=== PATIENT | female | born 1950 | race Caucasian/White ===

== ENCOUNTER → 2018-06-20 | Outpatient (CLI) | payer OTHER ==
[2018-06-20 11:02] LABS: Basophils # (auto) 0.1 uL; Basophils % (auto) 1.1 % (0.0-2.0); Eosinophils # (auto) 0.3 uL; Eosinophils % (auto) 4.7 % (0.0-7.0); Hematocrit 41.6 % (36.0-46.0); Hemoglobin 13.5 g/dL (12.2-16.2); Lymphocytes # (auto) 1.8 uL; Mean Corpuscular Hemoglobin 29.4 pg (28.0-32.0); Mean Corpuscular Hgb Conc. 32.4 g/dL (32.0-36.0); Mean Corpuscular Volume 90.7 fL (80.0-100.0); Monocytes # (auto) 0.4 uL; Monocytes % (auto) 6.9 % (0.0-12.0); Neutrophils # (auto) 3.2 uL; Neutrophils % (auto) 56.3 % (37.0-80.0); Nucleated Red Blood Cells % 0.1 %; Platelet Count (auto) 226 10^3/uL (140-450); Red Blood Cells 4.59 10^6/uL (4.0-5.20); Red Cell Distribution Width 15.3 % (11.8-14.3); White Blood Cell 5.7 10^3/uL (4.4-10.8)
[2018-06-20 11:26] LABS: Albumin 3.9 g/dL (3.4-5.0); BUN/Creatinine Ratio 16.9; Potassium 3.6 mmol/L (3.5-5.1)
[2018-06-20 11:30] LABS: Bilirubin, Total 0.4 mg/dL (0.2-1.0); Total Protein 7.8 g/dL (6.4-8.2); Urine Bacteria FEW /hpf (None Seen); Urine Blood 1+ /uL (Negative); Urine Mucus FEW (None Seen); Urine Specific Gravity 1.025 (1.001-1.035); Urine WBC 33 /hpf (0 - 5)
== END | disposition home or self-care (01) ==
LOC: LAB 10:52
PROVIDERS: ATTEND Family Medicine
DX: E55.9 Vitamin D deficiency, unspecified (principal); I10 Essential (primary) hypertension; E66.09 Other obesity due to excess calories; Z86.19 Personal history of other infectious and parasitic diseases
CPT/HCPCS: 36415; 80053; 80061; 81001; 82306; 82607; 83036; 84443; 85025

== ENCOUNTER 2018-11-29 06:11 | Inpatient (IN) | payer OTHER ==
[2018-11-25 15:10] LABS: Basophils # (auto) 0 uL; Basophils % (auto) 0.5 % (0.0-2.0); Eosinophils # (auto) 0.3 uL; Hematocrit 41.8 % (36.0-46.0); Hemoglobin 13.4 g/dL (12.2-16.2); Lymphocytes # (auto) 1.7 uL; Mean Corpuscular Hemoglobin 29.1 pg (28.0-32.0); Mean Corpuscular Hgb Conc. 32.1 g/dL (32.0-36.0); Mean Corpuscular Volume 90.8 fL (80.0-100.0); Monocytes # (auto) 0.5 uL; Monocytes % (auto) 8.6 % (0.0-12.0); Neutrophils # (auto) 3.3 uL; Neutrophils % (auto) 55.9 % (37.0-80.0); Nucleated Red Blood Cells % 0.1 %; Platelet Count (auto) 219 10^3/uL (140-450); Red Cell Distribution Width 14.5 % (11.8-14.3); White Blood Cell 5.8 10^3/uL (4.4-10.8)
[2018-11-25 15:22] LABS: Urine Bacteria NONE SEEN /hpf (None Seen); Urine Blood Negative /uL (Negative); Urine Mucus FEW (None Seen); Urine Specific Gravity 1.014 (1.001-1.035); Urine WBC 1 /hpf (0 - 5)
[2018-11-25 15:44] LABS: INR 0.95 (0.9-1.15); Partial Thromboplastin Time 26.9 sec (23.64-32.05)
[2018-11-25 16:05] LABS: Albumin 4.2 g/dL (3.4-5.0); Calcium 9.7 mg/dL (8.5-10.1); Potassium 3.3 mmol/L (3.5-5.1)
[2018-11-25 16:09] LABS: BUN/Creatinine Ratio 17.2; Bilirubin, Total 0.3 mg/dL (0.2-1.0)
[2018-11-29] VITALS (11 sets, daily range): BP systolic 109–131; BP diastolic 64–84
[~2018-11-29] VITALS: Ht 162.6 cm; Wt 110.1 kg
[~2018-11-29 06:11] MED LIST: AMLO10TA13 PO; ASPI-404 PO; CHOL1CAP48 PO; FERR1TAB8 PO; LISI40TA PO; METO100T18 PO
[2018-11-29] MEDS ORDERED: ceFAZolin 1GM/50ML 100 ML IV ONE (06:47)
[2018-11-29] MEDS ORDERED: TETRACAINE 1% INJ 2 ML VIAL IJ ONE ×2 (06:57→07:10)
[2018-11-29] MEDS ORDERED: fentaNYL CITRATE 100 MCG/2 ML VL ONE (07:16)
[2018-11-29] MEDS ORDERED: MIDAZOLAM HCL 1MG/1ML-2 ML VIAL ONE ×3 (07:16→08:41)
[2018-11-29] MEDS ORDERED: PROPOFOL 10 MG/ML 20 ML IV ONE ×3 (07:16→10:52)
[2018-11-29] MEDS ORDERED: SODIUM CHLORIDE LOCK 10 ML ONE (07:16)
[2018-11-29] MEDS ORDERED: ONDANSETRON HCL 4 MG/2 ML VIAL ONE (07:16)
[2018-11-29] MEDS ORDERED: MORPHINE SULF(PF) 0.5MG/ML 10ML VIAL ONE (07:16)
[2018-11-29] MEDS ORDERED: EPINEPHrine HCL 1 MG/1 ML AMP ONE (07:18)
[2018-11-29] MEDS ORDERED: diphenhdrAMINE HCL 50 MG/1 ML VL IV PRN (09:00)
[2018-11-29] MEDS ORDERED: HYDROmorphone HCL 2 MG/ML VL IV PRN ×2 (09:00→12:30)
[2018-11-29] MEDS ORDERED: KETOROLAC TROMETH 30 MG/ML 1ML VIAL IV ONE (09:00)
[2018-11-29] MEDS ORDERED: NALOXONE HCL 0.4 MG/ML VIAL IV PRN (09:00)
[2018-11-29] MEDS ORDERED: fentaNYL CITRATE 100 MCG/2 ML VL IV PRN (09:00)
[2018-11-29] MEDS ORDERED: LACTATED RINGER'S 1,000 ML IV SCH (12:17)
[2018-11-29] MEDS ORDERED: ONDANSETRON HCL 4 MG/2 ML VIAL IV PRN (12:30)
[2018-11-29] MEDS ORDERED: ACETAMINOPHEN 325 MG TAB PO PRN (12:30)
[2018-11-29] MEDS ORDERED: ceFAZolin 1GM/50ML 50 ML IV SCH (12:30)
[2018-11-29] MEDS ORDERED: TEMAZEPAM 15 MG CAP PO PRN (12:30)
[2018-11-29] MEDS: ceFAZolin 1GM/50ML 50 ML IV SCH ×2 (15:42→19:59)
--- NOTE | 2018-11-29 16:31 | NUR ---
Respiratory note: PT PLACED ON CONTINUOUS POX THAT IS ATTACHED TO PT'S LEFT HAND. ALARMS ARE SET AND AUDIBLE. PT IS CURRENTLY ON A 3L NC AND IS AWAKE AND ALERT. NO SOB NOTED. RN AT BEDSIDE.
--- NOTE | 2018-11-29 17:00 | NUR ---
1415 RECEIVED FROM RECOVERY BY BED. DRESSING ON RIGHT KNEE IS CLEAN,DRY AND INTACT. ALERT AND ORIENTED. 1600 [address] CATHETER TUBE NOTED RIPPED AND LEAKING. REMOVED AND PATIENT VOIDED PER BEDPAN.
--- NOTE | 2018-11-29 20:14 | NUR ---
Opening Shift Note Assumed care of patient, awake and alert. No S/S of distress/SOB or pain. Patient's dressing has visible bloody drainage, marked bandage. Patient dressing reinforced with ABD, gauze and kerlix. Will continue to monitor. Instructed on POC and to call for assist PRN, will continue to monitor for changes Q1hr and PRN. Patient's bed lowered, side rails x2 raised, and call light within reach.
--- NOTE | 2018-11-29 20:21 | NUR ---
[facility] protocol Monitoring patient's BP, HR, and O2 every hour per protocol. Will notify physician of any changes. Addendum: 11/29/18 at 2302 by CAROLINA QUEEN RN RN Respiratory rate is also being monitored.
[2018-11-29] MEDS: SODIUM CHLOR 0.9% PF (SALINE LOCK) 10ML VIAL/SYR IV SCH (22:00)
[2018-11-29] MEDS: DOCUSATE SOD 100 MG CAP PO SCH (22:00)
--- NOTE | 2018-11-29 22:56 | NUR ---
Pain medication Spoke to hospitalist concerning pain medication administration with Duramorph spinal anesthesia. Hospitalist states patient may receive PO Oxycontin, and PO Byron as needed PRN as prescribed. Patient administered acetaminophen and states pain is improving. Will continue to monitor pain and vitals. Call light within reach, safety rails x2 up, bed in low position.
[2018-11-29] MEDS: oxyCODONE ER 10 MG TAB PO SCH (23:25)
[2018-11-30] VITALS (14 sets, daily range): BP systolic 81–149; BP diastolic 57–81
[2018-11-30] MEDS: ceFAZolin 1GM/50ML 50 ML IV SCH (01:56)
--- NOTE | 2018-11-30 05:00 | NUR ---
Incentive Spirometer Reeducated patient of proper use of incentive spirometer. Patient demonstrated proper technique. Patient was able to to achieve appropriate level.
--- NOTE | 2018-11-30 05:51 | NUR ---
pt on Nursing cont pox rt not working since 11-29-18 per gladys shift rn Addendum: 11/30/18 at 0552 by Minoo Stallworth RT Amended: Links added.
[2018-11-30] MEDS: HYDROcodone-ACET 10/325MG TAB PO PRN ×2 (06:35→14:35)
[2018-11-30 07:34] LABS: Hematocrit 31.9 % (36.0-46.0); Hemoglobin 10.7 g/dL (12.2-16.2)
[2018-11-30] MEDS: DOCUSATE SOD 100 MG CAP PO SCH ×2 (10:00→21:32)
[2018-11-30] MEDS: oxyCODONE ER 10 MG TAB PO SCH ×2 (10:01→21:33)
[2018-11-30] MEDS: ENOXAPARIN SOD 40 MG/0.4 ML SYRINGE SC SCH (10:01)
--- NOTE | 2018-11-30 10:04 | NUR ---
SO FAR TOLERATING CPM, WILL CONTINUE TO MONITOR. VS BETTER.
[2018-11-30] MEDS ORDERED: HYDROmorphone HCL 2 MG/ML VL IV PRN (12:00)
[2018-11-30] MEDS: SODIUM CHLORIDE 0.9% 1,000 ML IV SCH (14:37)
[2018-11-30] MEDS: SODIUM CHLOR 0.9% PF (SALINE LOCK) 10ML VIAL/SYR IV SCH ×2 (15:02→21:33)
--- NOTE | 2018-11-30 17:17 | NUR ---
assessment re: consult discharge planning Patient is a 68 year old female who is alert and oriented. Prior to admission patient lived home with her Randall and was independent. Patient has been admitted for right knee replacement. I informed patient she has a ss consult for discharge planning. Patient will return home with her on discharge. Patient may need a fww, she informed me she has a fww. Patient does not know where it is. Patient will also need a CPM and home health for PT on discharge. Patients PCP is Dr Gulshan Ryder. I informed patient she has a right to speak to a director of social work regarding all care. Patient does not have a POA and advanced directive. I have offered patient information on POA and advanced directives. I informed the patient the advantages and benefits of having an Advanced Directive. Patient verbalized understanding and agreed to discharge plan home. Addendum: 11/30/18 at 1721 by Suzie Villarreal Amended: Links added.
--- NOTE | 2018-11-30 18:15 | NUR ---
right knee dressing changed.
--- NOTE | 2018-11-30 19:30 | NUR ---
Opening Shift Note Assumed care of patient, awake and alert. No S/S of distress/SOB or pain. Instructed on POC and to call for assist PRN. Bed in lowest locked position, call light within reach, side rails up x2, fall precautions in place. Will continue to monitor for changes Q1hr and PRN.
[2018-12-01 05:00] VITALS: BP 135/58
[2018-12-01 05:50] LABS: Hematocrit 27.9 % (36.0-46.0); Hemoglobin 9.3 g/dL (12.2-16.2)
[2018-12-01 06:12] LABS: BUN/Creatinine Ratio 15.8; Calcium 9.1 mg/dL (8.5-10.1); Potassium 3.4 mmol/L (3.5-5.1)
[2018-12-01] MEDS: SODIUM CHLORIDE 0.9% 1,000 ML IV SCH ×2 (06:15→13:00)
[2018-12-01] MEDS: SODIUM CHLOR 0.9% PF (SALINE LOCK) 10ML VIAL/SYR IV SCH ×3 (06:15→22:00)
--- NOTE | 2018-12-01 07:27 | NUR ---
Opening Shift Note Assumed care of patient, awake and alert. No S/S of distress or SOB. Pt reports pain of 5/10. Bed in lowest and locked position with side rails up x2 and call light within reach. Instructed on POC and to call for assist PRN, will continue to monitor for changes Q1hr and PRN.
[2018-12-01 08:57] VITALS: BP 119/55
[2018-12-01] MEDS: ENOXAPARIN SOD 40 MG/0.4 ML SYRINGE SC SCH (09:57)
[2018-12-01] MEDS: oxyCODONE ER 10 MG TAB PO SCH ×2 (09:57→21:24)
[2018-12-01] MEDS: DOCUSATE SOD 100 MG CAP PO SCH ×2 (09:57→21:25)
--- NOTE | 2018-12-01 11:35 | NUR ---
MD NOTIFIED AND AWARE OF PT TEMPERATURE.
[2018-12-01] MEDS ORDERED: POTASSIUM CHL 20 Meq TABLET PO ONE (11:45)
[2018-12-01] MEDS: ACETAMINOPHEN 500 MG TAB PO PRN (12:32)
[2018-12-01 13:00] VITALS: BP 138/71
--- NOTE | 2018-12-01 13:28 | NUR ---
SPOKE TO DR. DARDEN. AWARE OF PATIENTS TEMP. NO NEW ORDERS RECEIVED.
[2018-12-01 16:28] VITALS: BP 126/67
--- NOTE | 2018-12-01 17:40 | NUR ---
re-assessment Ss consult Home Health Pt, Home Cpm, Home walker. Home Health order faxed to [facility] ph:[phone] fx: [phone] per Evelin pt has been accepted and service to start in 24-48 hrs. Cpm order faxed to [facility] ph:[phone] fx: [phone] per Johnna faxed received and order will be processed. Walker order faxed to per Sophy fww will be delivered to bedside by 1700 ph:[phone] fx: [phone] . Reported to Babita Ibarra. Pt agrees to discharge plan. Addendum: 12/01/18 at 1741 by Suzie OATES Amended: Links added.
--- NOTE | 2018-12-01 17:45 | NUR ---
ACCORDING TO S/S THE PATIENT WILL BE DISCHARGED WITH THE CPM MACHINE THAT IS AT THE PT BEDSIDE AND THE WALKER IS TO BE DELIVERED AT BEDSIDE.
--- NOTE | 2018-12-01 18:00 | NUR ---
RECEIVED CALL FROM DR. DARDEN EXERCISE PHYSIOLOGISTERIN. ERIN VERIFIED THAT PATIENT IS TO BE DISCHARGED HOME WITH THE CPM MACHINE THAT IS AT THE PATIENTS BEDSIDE.
--- NOTE | 2018-12-01 19:40 | NUR ---
Opening Shift Note Assumed care of patient, awake and alert. Orientated patient to RnKailey. No S/S of distress/SOB or pain. Instructed on POC and to call for assist PRN, will continue to monitor for changes Q1hr and PRN. Bed in low position and call light within reach.
[2018-12-01 22:00] VITALS: BP 129/63
[2018-12-02] MEDS: SODIUM CHLORIDE 0.9% 1,000 ML IV SCH (01:20)
[2018-12-02] MEDS: ACETAMINOPHEN 500 MG TAB PO PRN (04:59)
[2018-12-02 05:18] VITALS: BP 122/57
[2018-12-02 07:13] LABS: Eosinophils # (auto) 0 uL; Hemoglobin 8.3 g/dL (12.2-16.2); Lymphocytes # (auto) 1.3 uL; Neutrophils # (auto) 6.4 uL; Platelet Count (auto) 135 10^3/uL (140-450); White Blood Cell 8.8 10^3/uL (4.4-10.8)
[2018-12-02 07:15] LABS: Basophils # (auto) 0.1 uL; Basophils % (auto) 0.8 % (0.0-2.0); Eosinophils % (auto) 0.5 % (0.0-7.0); Hematocrit 24.3 % (36.0-46.0); Lymphocytes % (auto) 14.6 % (10.0-50.0); Mean Corpuscular Hemoglobin 30.4 pg (28.0-32.0); Mean Corpuscular Hgb Conc. 33.9 g/dL (32.0-36.0); Mean Corpuscular Volume 89.7 fL (80.0-100.0); Monocytes % (auto) 11.2 % (0.0-12.0); Neutrophils % (auto) 72.9 % (37.0-80.0); Red Blood Cells 2.71 10^6/uL (4.0-5.20); Red Cell Distribution Width 14.4 % (11.8-14.3)
[2018-12-02 07:18] LABS: Calcium 8.5 mg/dL (8.5-10.1); Potassium 3.4 mmol/L (3.5-5.1)
[2018-12-02 07:20] LABS: BUN/Creatinine Ratio 15.6
--- NOTE | 2018-12-02 07:30 | NUR ---
REPORT GIVEN TO DAY SHIFT NURSE.
--- NOTE | 2018-12-02 07:30 | NUR ---
Opening Shift Note Assumed care of patient, awake and alert. No S/S of distress or SOB or pain. Bed in lowest and locked position with side rails up x2 and call light within reach. Instructed on POC and to call for assist PRN, will continue to monitor for changes Q1hr and PRN.
[2018-12-02 08:00] VITALS: BP 120/71
[2018-12-02] MEDS: oxyCODONE ER 10 MG TAB PO SCH ×2 (10:30→21:48)
[2018-12-02] MEDS: DOCUSATE SOD 100 MG CAP PO SCH ×2 (10:30→21:48)
[2018-12-02 12:51] VITALS: BP 119/65
[2018-12-02 12:53] VITALS: BP 158/81
[2018-12-02] MEDS ORDERED: POTASSIUM CHL 20 Meq TABLET PO ONE (13:15)
[2018-12-02] MEDS ORDERED: LACTULOSE 20Gm/30ML SOLN PO ONE (13:15)
--- NOTE | 2018-12-02 14:02 | NUR ---
SPOKE TO THE CLOTH FINISHING RANGE OPERATOR. ACCORDING TO THE TECH THE PATIENT IS TO TAKE THE CPM MACHINE THAT IS AT THE PATIENTS BEDSIDE HOME WITH HER FOR FURTHER THERAPY. THE PATIENT WILL BE TAUGHT HOW TO USE THE EQUIPMENT ONCE SHE IS HOME.
--- NOTE | 2018-12-02 15:00 | NUR ---
IV removal IV In right hand DC'd with clean sterile technique, catheter fully intact. Pressure dressing applied to site. Patient tolerated well.
[2018-12-02] MEDS: SODIUM CHLOR 0.9% PF (SALINE LOCK) 10ML VIAL/SYR IV SCH ×3 (15:07→21:49)
--- NOTE | 2018-12-02 15:15 | NUR ---
Patient refused IV placement. Educated patient on the importance of having an IV placed. Patient continues to express that she does not want a new IV at this time.
[2018-12-02 16:33] VITALS: BP 138/51
--- NOTE | 2018-12-02 19:41 | NUR ---
Opening Shift Note Assumed care of patient, awake and alert. No S/S of distress/SOB or pain. Instructed on POC and to call for assist PRN, will continue to monitor for changes Q1hr and PRN.
--- NOTE | 2018-12-02 19:42 | NUR ---
Patient refused placement of new IV due to previous IV infiltrated. Educated patient on the importance of having an IV placed and answered all concerns.
[2018-12-02 21:43] VITALS: BP 155/73
[2018-12-03] VITALS (9 sets, daily range): BP systolic 110–154; BP diastolic 60–86
[2018-12-03] MEDS: SODIUM CHLOR 0.9% PF (SALINE LOCK) 10ML VIAL/SYR IV SCH ×2 (06:03→14:00)
[2018-12-03 07:29] LABS: Hematocrit 23.7 % (36.0-46.0)
--- NOTE | 2018-12-03 08:00 | NUR ---
Opening Note Assumed care of patient, she is A & O x4, no s/s of distress at this time. Patient is requesting placement of CPMachine for R leg. Will page PT to place patient on machine. Otherwise patient is comfortable at this time. POC discussed with patient. Will continue to monitor Q1h and PRN.
[2018-12-03] MEDS: oxyCODONE ER 10 MG TAB PO SCH ×2 (11:02→21:37)
[2018-12-03] MEDS: DOCUSATE SOD 100 MG CAP PO SCH ×2 (11:03→21:37)
--- NOTE | 2018-12-03 16:27 | NUR ---
Blood transfusion bag 1 of 2 started. Will monitor per protocol.
--- NOTE | 2018-12-03 19:28 | NUR ---
Care endorsed to NAVDEEP Cloud shift RN Notified RN that blood transfusion is currently running, was started at 1627, patient tolerating well, no reactions.
[2018-12-04 05:00] VITALS: BP 149/74
[2018-12-04] MEDS: SODIUM CHLOR 0.9% PF (SALINE LOCK) 10ML VIAL/SYR IV SCH ×2 (06:34→06:35)
--- NOTE | 2018-12-04 07:05 | NUR ---
PT AMBULATED WELL TO BATHROOM X 3 USING WALKER WITH GOOD SLOW STEADY GAIT. DENIES PAIN. CALL LIGHT IN REACH.
[2018-12-04 08:45] VITALS: BP 136/72
[2018-12-04 09:02] LABS: Hematocrit 35.3 % (36.0-46.0); Hemoglobin 11.8 g/dL (12.2-16.2)
--- NOTE | 2018-12-04 10:30 | NUR ---
Dr. Arevalo at bedside Dr. Arevalo removed bandage over knee and looked at incision site. Orders to place a clear tegaderm over the incision site. Cleared patient to go home, stated "blood levels look better after transfusion". Prescriptions placed in chart. Will await orders for discharge.
[2018-12-04] MEDS: oxyCODONE ER 10 MG TAB PO SCH (11:43)
[2018-12-04] MEDS: DOCUSATE SOD 100 MG CAP PO SCH (11:44)
[2018-12-04 12:41] VITALS: BP 147/96
[2018-12-04] MEDS ORDERED: HYDR-4798 PO (13:56)
[2018-12-04] MEDS ORDERED: APIX5TAB OR (13:57)
--- NOTE | 2018-12-04 14:20 | NUR ---
o/c note Spoke to Elizabeth at [facility] to inform her pt is being d/c today. Start of care 24 - 48 hrs post d/c
[2018-12-04] MEDS ORDERED: IBU600T PO (14:45)
--- NOTE | 2018-12-04 15:55 | NUR ---
Discharge instructions given as ordered. Encourage to follow up with PMD as instructed. All questions and concerns addressed. Patient verbalized understanding. Medication reconciliation form completed and copy given to patient. Education given regarding diagnosis and new medications upon discharge. IV removed with catheter intact, pressure dressing applied. Patient taken to vehicle via wheelchair with all personal belongings, walker, and CPM machine, accompanied by staff and family member. No distress noted at time of departure.
--- NOTE | 2018-12-04 16:10 | NUR ---
PATIENT DISCHARGED Addendum: 12/04/18 at 1702 by DONA RUBY RN RN Amended: Links added.
== END 2018-12-04 15:55 | disposition home health service (06) | DRG 470 ==
LOC: SUR 06:11 → WEST WING 14:23
PROVIDERS: ADMIT Orthopaedic Surgery; ATTEND Internal Medicine
PROC: 0MBN0ZZ Excision of Right Knee Bursa and Ligament, Open Approach (ICD-10-PCS; 2018-11-29)
PROC: 0KNQ0ZZ Release Right Upper Leg Muscle, Open Approach (ICD-10-PCS; 2018-11-29)
PROC: 0SRC0J9 Replacement of Right Knee Joint with Synthetic Substitute, Cemented, Open Approach (ICD-10-PCS; principal; 2018-11-29 07:36)
PROC: 30233N1 Transfusion of Nonautologous Red Blood Cells into Peripheral Vein, Percutaneous Approach (ICD-10-PCS; 2018-12-03)
DX: M17.11 Unilateral primary osteoarthritis, right knee (principal); Z68.41 Body mass index [BMI] 40.0-44.9, adult; E66.01 Morbid (severe) obesity due to excess calories; I10 Essential (primary) hypertension; M21.069 Valgus deformity, not elsewhere classified, unspecified knee; Z96.651 Presence of right artificial knee joint; D64.9 Anemia, unspecified; M71.561 Other bursitis, not elsewhere classified, right knee; M24.561 Contracture, right knee; Z79.899 Other long term (current) drug therapy
CPT/HCPCS: 36415; 73562; 80048; 80053; 81001; 85014; 85018; 85025; 85610; 85730; 86850; 86900; 86901; 86920; 94762; 97116; 97163; 97530; G0378; J0171; J0690; J2250; J2405; J2704

== ENCOUNTER → 2020-01-09 | Outpatient (CLI) | payer OTHER ==
[~2020-01-09] MED LIST changes: +APIX5TAB OR; -ASPI-404 PO; +ASPI-543 PO; +HYDR-4798 PO; +IBU600T PO; -LISI40TA PO; +LISI40TA11 PO
[2020-01-09 12:09] LABS: Basophils # (auto) 0.1 10 ^3/uL (0-0.2); Basophils % (auto) 1.2 % (0.0-2.0); Eosinophils # (auto) 0.2 10 ^3/uL (0-0.8); Eosinophils % (auto) 4.3 % (0.0-7.0); Hematocrit 41.1 % (36.0-46.0); Hemoglobin 13.5 g/dL (12.2-16.2); Lymphocytes # (auto) 1.6 10 ^3/uL (0.4-5.4); Lymphocytes % (auto) 28.1 % (10.0-50.0); Mean Corpuscular Hemoglobin 29.7 pg (28.0-32.0); Mean Corpuscular Hgb Conc. 32.9 g/dL (32.0-36.0); Mean Corpuscular Volume 90.2 fL (80.0-100.0); Monocytes # (auto) 0.4 10 ^3/uL (0-1.3); Monocytes % (auto) 7.1 % (0.0-12.0); Neutrophils # (auto) 3.3 10 ^3/uL (1.6-8.6); Neutrophils % (auto) 59.3 % (37.0-80.0); Platelet Count (auto) 232 10^3/uL (140-450); Red Blood Cells 4.55 10^6/uL (4.0-5.20); Red Cell Distribution Width 14.3 % (11.8-14.3); White Blood Cell 5.6 10^3/uL (4.4-10.8)
[2020-01-09 12:14] LABS: Urine Bacteria NONE SEEN /hpf (None Seen); Urine Blood 1+ /uL (Negative); Urine Budding Yeast OCCASIONAL /hpf (None Seen); Urine Mucus FEW (None Seen); Urine Specific Gravity 1.021 (1.001-1.035); Urine WBC 2 /hpf (0 - 5)
[2020-01-09 12:40] LABS: Albumin 4.2 g/dL (3.4-5.0); Calcium 9.6 mg/dL (8.5-10.1); Potassium 3.5 mmol/L (3.5-5.1)
[2020-01-09 12:45] LABS: BUN/Creatinine Ratio 13.6; Bilirubin, Total 0.4 mg/dL (0.2-1.0); Total Protein 7.8 g/dL (6.4-8.2)
== END | disposition home or self-care (01) ==
LOC: LAB 11:39
PROVIDERS: ATTEND Family Medicine
DX: I10 Essential (primary) hypertension (principal); E55.9 Vitamin D deficiency, unspecified; E66.09 Other obesity due to excess calories; Z83.3 Family history of diabetes mellitus; Z96.659 Presence of unspecified artificial knee joint
CPT/HCPCS: 36415; 80053; 80061; 81001; 82306; 82607; 83036; 84443; 85025

== ENCOUNTER 2021-01-23 08:42 | Day surgery (SDC) | payer OTHER ==
[2021-01-20 10:32] LABS: Basophils # (auto) 0.1 10 ^3/uL (0-0.2); Basophils % (auto) 1.7 % (0.0-2.0); Eosinophils # (auto) 0.2 10 ^3/uL (0-0.8); Eosinophils % (auto) 3.5 % (0.0-7.0); Hematocrit 40.3 % (36.0-46.0); Hemoglobin 13.2 g/dL (12.2-16.2); Lymphocytes # (auto) 1.8 10 ^3/uL (0.4-5.4); Lymphocytes % (auto) 30.7 % (10.0-50.0); Mean Corpuscular Hemoglobin 29.3 pg (28.0-32.0); Mean Corpuscular Hgb Conc. 32.8 g/dL (32.0-36.0); Mean Corpuscular Volume 89.5 fL (80.0-100.0); Monocytes # (auto) 0.5 10 ^3/uL (0-1.3); Neutrophils # (auto) 3.3 10 ^3/uL (1.6-8.6); Neutrophils % (auto) 56.1 % (37.0-80.0); Red Cell Distribution Width 14.6 % (11.8-14.3); White Blood Cell 5.8 10^3/uL (4.4-10.8)
[2021-01-20 10:40] LABS: Urine Bacteria NONE SEEN /hpf (None Seen); Urine Blood Negative /uL (Negative); Urine Mucus FEW (None Seen); Urine Specific Gravity 1.018 (1.001-1.035); Urine WBC 1 /hpf (0 - 5)
[2021-01-20 10:59] LABS: Calcium 9.9 mg/dL (8.5-10.1); Potassium 3.6 mmol/L (3.5-5.1)
[2021-01-20 11:05] LABS: Albumin 4.1 g/dL (3.4-5.0); BUN/Creatinine Ratio 16.5; Bilirubin, Total 0.5 mg/dL (0.2-1.0); Total Protein 7.7 g/dL (6.4-8.2)
[~2021-01-23] VITALS: Ht 162.6 cm; Wt 95.7 kg
[~2021-01-23 08:42] MED LIST changes: +AMLO-496 PO; -AMLO10TA13 PO; -APIX5TAB OR; +CYAN1TAB14 PO; -HYDR-4798 PO; -IBU600T PO; +POLY33504 GT; +TEMA30CA PO
[2021-01-23] MEDS ORDERED: fentaNYL CITRATE 100 MCG/2 ML VL ONE (09:08)
[2021-01-23] MEDS ORDERED: SODIUM CHLORIDE LOCK 10 ML ONE (09:08)
[2021-01-23] MEDS ORDERED: MIDAZOLAM HCL 2MG/2ML 2ml VIAL (1mg/ml) ONE (09:08)
[2021-01-23] MEDS ORDERED: PROPOFOL 10 MG/ML 20 ML IV ONE (09:08)
[2021-01-23] MEDS ORDERED: ONDANSETRON HCL 4 MG/2 ML VIAL ONE (09:08)
[2021-01-23] MEDS ORDERED: BENZOCAINE (DENTAL) 20 % SPRAY 60ML MT ONE (09:24)
[2021-01-23] MEDS ORDERED: HYDROmorphone HCL 2 MG/ML VL IV PRN (09:30)
[2021-01-23] MEDS ORDERED: METOCLOPRAMIDE HCL 5MG/ml INJ 2ml VIAL IV PRN (09:30)
[2021-01-23] MEDS ORDERED: MORPHINE SULFATE 4 MG/ML SYR/VIAL IV PRN (09:30)
[2021-01-23 10:30] VITALS: BP 145/86
== END 2021-01-23 10:35 | disposition home or self-care (01) ==
LOC: GI 08:42
PROVIDERS: ATTEND Internal Medicine Gastroenterology
DX: Z12.11 Encounter for screening for malignant neoplasm of colon (principal); K57.30 Diverticulosis of large intestine without perforation or abscess without bleeding; K64.8 Other hemorrhoids; Z98.890 Other specified postprocedural states; Z79.899 Other long term (current) drug therapy; Z20.822 Contact with and (suspected) exposure to COVID-19
CPT/HCPCS: 36415; 45378; 80053; 81001; 85025; J2250; J2405; J2704; J3010; J7030; U0003

== ENCOUNTER → 2021-02-24 | Outpatient (CLI) | payer OTHER ==
[2021-02-24 07:53] LABS: Basophils # (auto) 0.1 10 ^3/uL (0-0.2); Basophils % (auto) 1.2 % (0.0-2.0); Eosinophils # (auto) 0.2 10 ^3/uL (0-0.8); Hemoglobin 12.9 g/dL (12.2-16.2); Lymphocytes # (auto) 1.3 10 ^3/uL (0.4-5.4); Lymphocytes % (auto) 27.9 % (10.0-50.0); Mean Corpuscular Hemoglobin 28.7 pg (28.0-32.0); Mean Corpuscular Hgb Conc. 32.2 g/dL (32.0-36.0); Mean Corpuscular Volume 89.4 fL (80.0-100.0); Monocytes # (auto) 0.3 10 ^3/uL (0-1.3); Monocytes % (auto) 7.2 % (0.0-12.0); Neutrophils # (auto) 2.7 10 ^3/uL (1.6-8.6); Neutrophils % (auto) 59.7 % (37.0-80.0); Nucleated Red Blood Cells % 0.1 %; Red Blood Cells 4.48 10^6/uL (4.0-5.20); Red Cell Distribution Width 14.2 % (11.8-14.3); White Blood Cell 4.5 10^3/uL (4.4-10.8)
[2021-02-24 08:00] LABS: Urine Bacteria NONE SEEN /hpf (None Seen); Urine Blood 1+ /uL (Negative); Urine Hyaline Cast MANY /lpf (0 - 2); Urine Mucus FEW (None Seen); Urine Specific Gravity 1.026 (1.001-1.035); Urine WBC 5 /hpf (0 - 5)
[2021-02-24 08:43] LABS: Potassium 3.5 mmol/L (3.5-5.1)
[2021-02-24 08:53] LABS: Albumin 3.9 g/dL (3.4-5.0); BUN/Creatinine Ratio 14.2; Bilirubin, Total 0.6 mg/dL (0.2-1.0); Calcium 9.5 mg/dL (8.5-10.1); Total Protein 7.2 g/dL (6.4-8.2)
== END | disposition home or self-care (01) ==
LOC: LAB 07:21
PROVIDERS: ATTEND Family Medicine
DX: I10 Essential (primary) hypertension (principal); G47.09 Other insomnia; E66.9 Obesity, unspecified; E55.9 Vitamin D deficiency, unspecified
CPT/HCPCS: 36415; 80053; 80061; 81001; 82306; 83036; 84443; 85025